=== PATIENT | female | born 1995 | race Caucasian/White ===

== ENCOUNTER → 2020-05-09 19:25 | Observation (INO) ==
[2020-05-09 19:48] LABS: Candida DNA DETECTED (Not Detect); Gardnerella DNA DETECTED (Not Detect); Trichomonas DNA Not Detected (Not Detect)
== END | disposition home or self-care (01) ==
LOC: 1NENULAB
PROVIDERS: ADMIT Student in an Organized Health Care Education/Training Program; ATTEND Student in an Organized Health Care Education/Training Program

== ENCOUNTER 2020-07-24 07:55 | Inpatient (IN) ==
[2020-07-24] MEDS ORDERED: miSOPROStoL 25 MCG TABLET PO PRN (08:40)
[2020-07-24] MEDS ORDERED: Naloxone 0.4 MG/ML INJ IVP PRN (08:42)
[2020-07-24] MEDS ORDERED: Metoclopramide 10 MG/2 ML VIAL IVP PRN (08:42)
[2020-07-24] MEDS ORDERED: Famotidine 20 MG/2 ML VIAL IVP PRN (08:42)
[2020-07-24] MEDS ORDERED: Lidocaine 1% 20 ML MDV INFILT PRN (08:42)
[2020-07-24] MEDS ORDERED: Ringers Solution, Lactated 1,000 ML IVC SCH (08:45)
[2020-07-24] MEDS ORDERED: EPHEDrine 50 MG/ML VIAL IVP PRN (08:53)
[2020-07-24] MEDS ORDERED: Epidural Premix (fent/bupiv) 110 ML EP SCH (09:00)
[2020-07-24 09:13] LABS: Basophils % 0.4 %; Eosinophils # 0.1 K/mcL (0.0-0.6); Eosinophils % 0.8 %; Hematocrit 35.4 % (35.3-44.9); Hemoglobin 11.7 g/dL (11.5-15.4); Immature Granulocytes % 0.5 % (0-4); Lymphocytes # 2.1 K/mcL (0.6-4.6); Lymphocytes % 20.4 %; Mean Corpuscular HGB Conc 33.1 g/dL (31.6-35.5); Mean Corpuscular Hemoglobin 28.7 pg (28.0-33.3); Mean Platelet Volume 9.5 fL (9.4-12.4); Monocytes # 0.8 K/mcL (0.0-1.3); Monocytes % 7.3 %; Neutrophils # 7.4 K/mcL (1.6-8.9); Platelet Count 270 K/mcL (140-400); Red Blood Count 4.07 M/mcL (3.82-4.97); Red Cell Distribution Width 14.1 % (11.5-14.5); Segmented Neutrophils % 70.6 %; White Blood Count 10.4 K/mcL (4.3-11.1)
[2020-07-24 10:12] LABS: Amphetamine Screen,Urine Negative ng/mL (Cutoff=1000); Barbiturate Screen,Urine Negative ng/mL (Cutoff=200); Benzodiazepines Screen,Urine Negative ng/mL (Cutoff=200); Cannabinoid Screen,Urine Negative ng/mL (Cutoff = 50); Cocaine Screen,Urine Negative ng/mL (Cutoff= 300); Opiate Screen,Urine Negative ng/mL (Cutoff=300); Phencyclidine Screen,Urine Negative ng/mL (Cutoff=25)
[2020-07-24 11:32] LABS: Adenovirus Not Detected (Not Detect); Bordetella Pertussis Not Detected (Not Detect); Chlamydophila pneumoniae Not Detected (Not Detect); Coronavirus 229E Not Detected (Not Detect); Coronavirus HKU1 Not Detected (Not Detect); Coronavirus NL63 Not Detected (Not Detect); Coronavirus OC43 Not Detected (Not Detect); Human Metapneumovirus Not Detected (Not Detect); Human Rhinovirus/Enterovirus Not Detected (Not Detect); Influenza A Subtype 2009 H1 Not Detected (Not Detect); Influenza B Not Detected (Not Detect); Mycoplasma pneumoniae Not Detected (Not Detect); Parainfluenza Virus 1 Not Detected (Not Detect); Parainfluenza Virus 2 Not Detected (Not Detect); Parainfluenza Virus 3 Not Detected (Not Detect); Parainfluenza Virus 4 Not Detected (Not Detect); Respiratory Syncytial Virus Not Detected (Not Detect); SARS-CoV-2 Not Detected (Not Detect)
[2020-07-24] MEDS ORDERED: Oxytocin 20 units/ LR 1000 mL 20 UNIT/1,000 ML BAG IVC ONE (21:30)
[2020-07-24] MEDS ORDERED: Oxytocin 20 units/ LR 1000 mL 20 UNIT/1,000 ML BAG IVC SCH (21:30)
[2020-07-25] MEDS: *HR* Nalbuphine 10 MG/ML AMPUL IV PRN ×2 (00:57→06:16)
[2020-07-25] MEDS ORDERED: Benzocaine/Menthol 56 GM AEROSOL SPRAY TP PRN (10:47)
[2020-07-25] MEDS ORDERED: Rho Immune Globulin 1,500 UNIT SYRINGE IM PRN (10:47)
[2020-07-25] MEDS ORDERED: Measles/Mumps/Rubella Vacc 0.5 ML VIAL SQ PRN (10:47)
[2020-07-25] MEDS ORDERED: Acetaminophen 325 MG TABLET PO PRN (10:47)
[2020-07-25] MEDS ORDERED: Oxytocin 20 units/ LR 1000 mL 20 UNIT/1,000 ML BAG IVC SCH (10:47)
[2020-07-25] MEDS ORDERED: Oxytocin 20 units/ LR 1000 mL 20 UNIT/1,000 ML BAG IVC ONE (10:47)
[2020-07-25] MEDS: Ibuprofen 600 MG TABLET PO PRN ×2 (11:08→17:02)
[2020-07-25] MEDS: Prenatal Vit/FA 1 EACH TABLET PO SCH (20:18)
[2020-07-26 03:59] LABS: Eosinophils % 1.3 %; Hemoglobin 11.4 g/dL (11.5-15.4); Immature Granulocytes % 0.7 % (0-4); Lymphocytes % 23.7 %; Mean Corpuscular HGB Conc 33.5 g/dL (31.6-35.5); Mean Corpuscular Hemoglobin 29.8 pg (28.0-33.3); Mean Corpuscular Volume 88.8 fL (83.0-100.0); Mean Platelet Volume 9.5 fL (9.4-12.4); Monocytes % 7.3 %; Platelet Count 272 K/mcL (140-400); Red Blood Count 3.83 M/mcL (3.82-4.97); Red Cell Distribution Width 14.2 % (11.5-14.5); Segmented Neutrophils % 66.6 %; White Blood Count 13.2 K/mcL (4.3-11.1)
[2020-07-26 04:00] LABS: Basophils # 0.1 K/mcL (0.0-0.2); Basophils % 0.4 %; Eosinophils # 0.2 K/mcL (0.0-0.6); Lymphocytes # 3.1 K/mcL (0.6-4.6); Neutrophils # 8.8 K/mcL (1.6-8.9)
[2020-07-26] MEDS: Prenatal Vit/FA 1 EACH TABLET PO SCH (07:21)
[2020-07-26] MEDS: Ibuprofen 600 MG TABLET PO PRN (07:21)
[2020-07-26 07:57] VITALS: BP 119/79
== END 2020-07-26 16:44 | disposition home or self-care (01) | DRG 560 ==
LOC: 1NENULAB 07:55 → 1NENUOBS 07-25 10:46
PROVIDERS: ADMIT Obstetrics & Gynecology; ATTEND Obstetrics & Gynecology

== ENCOUNTER 2021-07-11 05:22 | Inpatient (IN) ==
[~2021-07-11 05:22] MED LIST: *HR* Nalbuphine 10 MG/ML AMPUL IV PRN; Azithromycin 500 MG in 0.9 % Sodium Chloride 250 ML IVPB PRN; Famotidine 20 MG/2 ML VIAL IVP PRN; Lidocaine 1% 20 ML MDV INFILT PRN; Metoclopramide 10 MG/2 ML VIAL IVP PRN; Naloxone 0.4 MG/ML INJ IVP PRN; Ondansetron 4 MG/2 ML VIAL IVP PRN; Ringers Solution, Lactated 1,000 ML IVC SCH
[2021-07-11 05:51] LABS: Basophils % 0.3 %; Eosinophils # 0.1 K/mcL (0.0-0.6); Eosinophils % 0.9 %; Hematocrit 37.8 % (35.3-44.9); Hemoglobin 12.7 g/dL (11.5-15.4); Immature Granulocytes % 0.9 % (0-4); Lymphocytes # 2.5 K/mcL (0.6-4.6); Lymphocytes % 25.6 %; Mean Corpuscular HGB Conc 33.6 g/dL (31.6-35.5); Mean Corpuscular Hemoglobin 29.1 pg (28.0-33.3); Mean Corpuscular Volume 86.7 fL (83.0-100.0); Mean Platelet Volume 10.3 fL (9.4-12.4); Monocytes # 0.9 K/mcL (0.0-1.3); Monocytes % 8.8 %; Neutrophils # 6.2 K/mcL (1.6-8.9); Platelet Count 205 K/mcL (140-400); Red Blood Count 4.36 M/mcL (3.82-4.97); Red Cell Distribution Width 14.4 % (11.5-14.5); Segmented Neutrophils % 63.5 %; White Blood Count 9.8 K/mcL (4.3-11.1)
[2021-07-11 06:16] LABS: Influenza A PCR Negative (Negative); Influenza B PCR Negative (Negative); Resp. Syncytial Virus PCR Negative (Negative)
[2021-07-11 06:17] LABS: SARS-CoV-2 by PCR (In House) Positive (Negative)
[2021-07-11] MEDS ORDERED: Oxytocin 20 units/ LR 1000 mL 20 UNIT/1,000 ML BAG IVC ONE ×3 (07:13→11:54)
[2021-07-11] MEDS ORDERED: Methylergonovine 0.2 MG/ML AMPUL IM ONE ×2 (10:44→10:46)
[2021-07-11] MEDS ORDERED: Benzocaine/Menthol 56 GM AEROSOL SPRAY TP ONE (11:24)
[2021-07-11] MEDS ORDERED: Ondansetron ODT 4 MG TAB.RAPDIS SL PRN (11:54)
[2021-07-11] MEDS ORDERED: Measles/Mumps/Rubella Vacc 0.5 ML VIAL SQ PRN (11:54)
[2021-07-11] MEDS ORDERED: Benzocaine/Menthol 56 GM AEROSOL SPRAY TP PRN (11:54)
[2021-07-11] MEDS ORDERED: Lanolin 7 G OINT...G. TP PRN (11:54)
[2021-07-11] MEDS ORDERED: Rho Immune Globulin 1,500 UNIT SYRINGE IM PRN (11:54)
[2021-07-11] MEDS ORDERED: Oxytocin 20 units/ LR 1000 mL 20 UNIT/1,000 ML BAG IVC SCH (12:00)
[2021-07-11] MEDS: Acetaminophen 325 MG TABLET PO SCH ×2 (12:14→20:55)
[2021-07-11] MEDS: Ibuprofen 600 MG TABLET PO SCH ×2 (12:15→20:54)
[2021-07-12] MEDS: Ibuprofen 600 MG TABLET PO SCH ×2 (03:23→09:15)
[2021-07-12] MEDS: Acetaminophen 325 MG TABLET PO SCH ×2 (03:23→09:15)
[2021-07-12 03:27] VITALS: O2SAT 100
[2021-07-12 03:59] LABS: Basophils # 0.1 K/mcL (0.0-0.2); Basophils % 0.4 %; Eosinophils # 0.1 K/mcL (0.0-0.6); Eosinophils % 0.9 %; Hematocrit 40.6 % (35.3-44.9); Hemoglobin 12.3 g/dL (11.5-15.4); Immature Granulocytes % 0.6 % (0-4); Lymphocytes # 3.1 K/mcL (0.6-4.6); Lymphocytes % 26.9 %; Mean Corpuscular HGB Conc 30.3 g/dL (31.6-35.5); Mean Corpuscular Hemoglobin 29.7 pg (28.0-33.3); Mean Corpuscular Volume 98.1 fL (83.0-100.0); Mean Platelet Volume 9.8 fL (9.4-12.4); Monocytes # 1.2 K/mcL (0.0-1.3); Monocytes % 10.9 %; Neutrophils # 6.8 K/mcL (1.6-8.9); Platelet Count 199 K/mcL (140-400); Red Blood Count 4.14 M/mcL (3.82-4.97); Red Cell Distribution Width 14.6 % (11.5-14.5); Segmented Neutrophils % 60.3 %; White Blood Count 11.3 K/mcL (4.3-11.1)
[2021-07-12 07:05] VITALS: BP 113/69; PULSE 94; TEMP 98
[2021-07-12] MEDS ORDERED: Prenatal Vit/FA 1 EACH TABLET PO SCH (09:00)
[2021-07-12] MEDS ORDERED: Ringers Solution, Lactated 500 ML ONE (11:36)
== END 2021-07-12 11:40 | disposition home or self-care (01) | DRG 560 ==
LOC: 1NENULAB → 1NENUOBS 11:34
PROVIDERS: ADMIT Advanced Practice Midwife; ATTEND Advanced Practice Midwife